=== PATIENT | male | born 1980 | race Caucasian/White ===

== ENCOUNTER 2022-12-02 13:28 | Observation (INO) | payer BC ==
[~2022-12-02] VITALS: Ht 172.7 cm; Wt 99.8 kg
[2022-12-02] MEDS ORDERED: DONNATAL/LIDOCAINE/MAALOX 30 ML SUSP PO STA (13:54)
[2022-12-02] MEDS ORDERED: ASPIRIN 81 MG CHEW TAB PO ONE (14:00)
[2022-12-02 14:08] LABS: BASOPHILS # (AUTO) 0.1 (0.0-0.1); BASOPHILS % 1.2 % (0.0-1.0); EOSINOPHILS # (AUTO) 0.3 (0.0-0.4); EOSINOPHILS % 4.7 % (0.0-6.0); HEMATOCRIT 44.5 % (38.2-49.6); HEMOGLOBIN 15.1 g/dL (14.0-18.0); LYMPHOCYTES % 29.4 % (18.0-39.1); MEAN CORPUSCULAR HEMOGLOBIN 30.9 pg (28-32); MEAN CORPUSCULAR HGB CONC 33.9 g/dL (31-35); MONOCYTES # (AUTO) 0.7 (0.2-0.8); MONOCYTES % 9.7 % (4.4-11.3); NEUTROPHILS # (AUTO) 3.7 (2.1-6.9); NEUTROPHILS % 54.7 % (38.7-80.0); PLATELET COUNT 236 x10e3/uL (140-360); RED BLOOD COUNT 4.89 x10e6/uL (4.3-5.7)
[2022-12-02 14:24] LABS: ALBUMIN 4.4 g/dL (3.5-5.0); ALBUMIN/GLOBULIN RATIO 1.6 (0.8-2.0); ANION GAP 15.4 mmol/L (8-16); CALCIUM 9.5 mg/dL (8.4-10.2); CREATININE, SERUM 1.11 mg/dL (0.72-1.25); POTASSIUM 4.4 mmol/L (3.5-5.1)
[2022-12-02 14:32] LABS: CREATINE KINASE MB 3.6 ng/mL (0-5.0)
[2022-12-02] MEDS ORDERED: LIDOCAINE VISC 2% SOLN 15 ML UDC ONE (14:57)
[2022-12-02] MEDS ORDERED: BELLADONNA ALK/PHENOBARBITAL 5 ML UDC ONE (14:58)
[2022-12-02] MEDS ORDERED: MAGNESIUM/ALUMINUM/SIMETHICONE 30 ML UDC ONE (14:58)
[2022-12-02] MEDS ORDERED: ONDANSETRON HCL INJ 2MG/ML 2ML 2 MG/ML VIAL IV PRN (16:00)
[2022-12-02] MEDS: FAMOTIDINE 20 MG/2 ML VIAL IV SCH (16:43)
[2022-12-02 17:27] VITALS: BP 152/86
[2022-12-02 17:31] VITALS: BP 152/86
[2022-12-02] MEDS ORDERED: LOSARTAN POTAS100 MG PO (17:43)
[2022-12-02] MEDS ORDERED: NEXIUM20 MG PO (19:26)
[2022-12-02 21:01] VITALS: BP 129/88
[2022-12-03] VITALS (7 sets, daily range): BP systolic 115–149; BP diastolic 66–93
[2022-12-03] MEDS: FAMOTIDINE 20 MG/2 ML VIAL IV SCH ×2 (04:50→17:00)
[2022-12-03 05:43] LABS: CHOL/HDL RATIO 4.6 (3.9-4.7)
[2022-12-03 06:11] LABS: CREATINE KINASE 96 IU/L (30-200)
[2022-12-03] MEDS ORDERED: ASPIRIN 325 MG TAB EC PO SCH (09:00)
[2022-12-03] MEDS ORDERED: ONDANSETRON HCL 4 MG ORAL DISINTEGRATING TAB PO PRN (11:00)
[2022-12-03] MEDS ORDERED: LOSARTAN POTASSIUM 100 MG TAB PO SCH (11:00)
[2022-12-03 12:46] LABS: CREATINE KINASE 120 IU/L (30-200)
== END 2022-12-03 17:58 | disposition home or self-care (01) ==
LOC: ER 13:37 → ERHOLD 15:56 → MED/SURG 17:34
PROVIDERS: ADMIT Family Medicine; ATTEND Family Medicine
DX: R00.0 Tachycardia, unspecified (principal); R07.89 Other chest pain; F17.210 Nicotine dependence, cigarettes, uncomplicated; E66.09 Other obesity due to excess calories; Z68.33 Body mass index [BMI] 33.0-33.9, adult; K21.9 Gastro-esophageal reflux disease without esophagitis; Z20.822 Contact with and (suspected) exposure to COVID-19
CPT/HCPCS: 0223U; 36415 ×2; 71045; 80053; 80061; 82550 ×2; 82553 ×2; 83880; 84484 ×2; 85025; 93005; 93306; 94760; 94799; 99284; C9113; G0378 ×2